=== PATIENT | female | born 1970 | race Two or more races ===

== ENCOUNTER 2017-05-28 08:30 | Emergency (ER) | payer OTHER ==
--- NOTE | 2017-05-28 09:07 | EDM.PDOC ---
ED HPI GENERAL MEDICAL PROBLEM - General Chief Complaint: Back Pain or Injury Stated Complaint: BACK INJURY Time Seen by Provider: 05/28/17 08:51 Source of Information: Reports: Patient, RN Notes Reviewed History Limitations: Reports: No Limitations - History of Present Illness INITIAL COMMENTS - FREE TEXT/NARRATIVE: The patient states that she was pulling a cart 7 days ago, on Monday, 2016 at her work at [employer], when she slipped on some cardboard, falling onto a pallet, striking her sacral area. She states that she had pain immediately, causing her to have to leave work early. She took Tylenol at home. She took the week off, but returned to work yesterday, 05/27/2017. She was given light duty, but states that she still had pain, then, when she returned today, she had even worse pain while lifting some boxes. The patient states that her pain is felt in her sacrum and up her lumbar spine, but does not radiate down either lower extremity. She denies having any tingling , numbness, or weakness. The patient denies prior back injury. She states that she has been taking only Tylenol for her pain, as she is allergic to NSAIDs and opioids. No prior medical evaluation for this complaint. The patient states that there was a visible injury when she initially injured herself, but that it has resolved. The patient does not have a PCP. Treatments CUT OFF SAWYER: Reports: Acetaminophen Middle Back Pain Score (Numeric/FACES): 8 - Related Data Allergies Allergy/AdvReac Type Severity Reaction Status Date / Time aspirin Allergy Hives Verified 05/28/17 08:36 codeine Allergy Swelling Verified 05/28/17 08:36 ibuprofen Allergy Swelling Verified 05/28/17 08:36 Home Meds: Home Meds Acetaminophen [Tylenol Extra Strength] 1,000 mg PO Q4H PRN 05/28/17 [History] Orphenadrine [Norflex] 1 tab PO Q12H #10 tab.er 05/28/17 [Rx] Past Medical History HEENT History: Reports: Impaired Vision Other HEENT History: reading glasses [employer] History: Reports: Endocrine/Metabolic History: Reports: Obesity/BMI 30+ Hematologic History: Reports: Anemia - Infectious Disease History Infectious Disease History: Reports: Chicken Pox - Past Surgical History Female Surgical History: Reports: Tubal Ligation Dermatological Surgical History: Reports: Other (See Below) (Cyst removed from posterior scalp) Social & Family History - Tobacco Use Smoking Status *Q: Never Smoker Second Hand Smoke Exposure: No - Caffeine Use Caffeine Use: Reports: Coffee, Soda - Recreational Drug Use Recreational Drug Use: No ED ROS GENERAL - Review of Systems Review Of Systems: ROS reveals no pertinent complaints other than HPI. ED EXAM,LOWER BACK PAIN/INJURY - Physical Exam Exam: See Below Exam Limited By: No Limitations General Appearance: Alert, WD/WN, No Apparent Distress Back Exam: Other (No visible abnormality to the patient's lumbar sacral area, such as swelling, erythema, ecchymosis, or abrasion. The patient reports tenderness to palpation along the lumbar spinous processes, as well as over the sacrum. No significant tenderness to the paraspinous muscles. Normal range of motion to the lower back.) Course - Vital Signs Last Recorded V/S: Last Vital Signs Temp 36.3 C 05/28/17 08:35 Pulse 96 05/28/17 08:35 Resp 18 05/28/17 08:35 BP 144/102 H 05/28/17 08:35 Pulse Ox 98 05/28/17 08:35 - Orders/Labs/Meds Orders: Active Orders 24 hr Category Date Time Status Lumbar Spine 2 or 3V [CR] Stat Exams 05/28/17 09:00 Taken Sacrum Coccyx Min 2V [CR] Stat Exams 05/28/17 09:00 Taken Meds: Medications Discontinued Medications Generic Name Dose Route Start Last Admin Trade Name Freq PRN Reason Stop Dose Admin Orphenadrine Citrate 100 mg 05/28/17 09:31 Norflex PO 05/28/17 09:32 ONETIME STA - Re-Assessments/Exams Free Text/Narrative Re-Assessment/Exam: 05/28/17 09:07 The patient's physical examination is somewhat curious, as she is reporting tenderness to palpation over all of her lumbar spinous processes. Ordinarily, one would not have tenderness to palpation of the spinous processes unless there were a fracture of a spinous process or a significant tear in the interspinous ligament, and even then, the tenderness would only be at the site of the injury, not the entire lumbar spine. Even a vertebral body compression fracture should not cause pain to palpation of the corresponding spinous process. Nevertheless, I have ordered x-rays of the lumbar and sacral spine to evaluate for an acute bony injury. If these return as negative, I will start the patient on a muscle relaxant, and refer her to an Orthopedic Surgeon for further evaluation. 05/28/17 09:30 3-view radiographs of the lumbar spine appear to be unremarkable. No acute fracture is identified. No apparent loss of disc height is noted. Formal read per the Radiologist pending. 3 view radiographs of the sacrum appear to be unremarkable. No acute fracture is identified. Formal read per the Radiologist pending. 05/28/17 09:39 X-ray results discussed with the patient. As above, no acute spinous injury was found. The patient will receive her first dose of Norflex here in the ED, and I will e-prescribe her additional. I will refer her to Dr. Mckeon for follow-up. Departure - Departure Time of Disposition: 09:40 Disposition: Home, Self-Care 01 Condition: Good Clinical Impression: Low back pain - Discharge Information Referrals: PCP,None [Primary Care Provider] - Blayne Mckeon MD [Ordering Only Provider] - Forms: ED Department Discharge Additional Instructions: You were seen in the emergency room for low back pain after slipping and falling at work on 05/21/2017. On physical examination, no visible injury was seen, however, you were tender along your lumbar and sacral spine. Workup in the ER included x-rays of your lumbar spine and sacrum, which were normal. No broken bones were seen. The cause of your low back pain is not clear, but MAY BE due to a muscle spasm. We recommend you continue taking [id number] Tylenol as needed for discomfort. You have been started on the muscle relaxant Norflex. Take one tablet every 12 hours, as prescribed. This prescription can be picked up at [facility], [address] , across from [facility], between noon and 4:00 this afternoon. Follow-up with the spinal surgeon Dr. Blayne Mckeon, in [place], at the next available appointment. If any other problems, please do not hesitate to return to the ER. - My Orders Last 24 Hours: My Active Orders 05/28/17 09:00 Lumbar Spine 2 or 3V [CR] Stat Sacrum Coccyx Min 2V [CR] Stat - Assessment/Plan Last 24 Hours: My Active Orders 05/28/17 09:00 Lumbar Spine 2 or 3V [CR] Stat Sacrum Coccyx Min 2V [CR] Stat
[2017-05-28] MEDS ORDERED: Orphenadrine 100 MG Tab.ER PO STA (09:31)
--- NOTE | 2017-05-28 17:27 | CR ---
Lumbar spine: AP, lateral and coned-down lateral views centered to the lumbosacral junction were obtained. Comparison: No previous study. Slight endplate osteophytes within L3 and L4 are noted. Vertebral body heights and disc spaces are maintained. Pedicles are intact. Visualized transverse and spinous processes are intact. No subluxation or fracture is seen. Impression: 1. Minimal endplate osteophytes. No additional abnormality is seen on three-view lumbar spine study. Diagnostic code #2
--- NOTE | 2017-05-28 17:27 | CR ---
Sacrum and coccyx: Three views of the sacrum and coccyx were obtained. No fracture or other bony abnormality is seen. Sacroiliac joints are within normal limits. Impression: 1. No abnormality is seen on three-view sacrum and coccyx study. Diagnostic code #1
== END 2017-05-28 10:00 | disposition home or self-care (01) ==
LOC: JD.ED 08:30
DX: M54.5 Low back pain (principal); Z88.6 Allergy status to analgesic agent; Z88.5 Allergy status to narcotic agent
CPT/HCPCS: 72100; 72220; 99284; A9270; 99283

== ENCOUNTER 2020-10-05 21:18 | Emergency (ER) | payer BC, OTHER ==
[2020-10-05] MEDS ORDERED: Sodium Chloride 0.9% 1,000 ML IV ONE (22:58)
--- NOTE | 2020-10-05 23:03 | EDM.PDOC ---
ED HPI GENERAL MEDICAL PROBLEM - General Chief Complaint: AUTISM TUTOR Problem Stated Complaint: CRAMPS VAGINAL BLEEDING 1 MONTH Time Seen by Provider: 10/05/20 22:42 Source of Information: Reports: Patient, Family (Daughter) History Limitations: Reports: No Limitations - History of Present Illness INITIAL COMMENTS - FREE TEXT/NARRATIVE: Mrs. Cheney is a pleasant 50-year-old woman who now presents the ED stating that she has had vaginal bleeding at a rate of several pads per day, since her last menstrual period in early August. She states that she has only spotted today, but that today was the only day that that happened. She states that she came to the ED because she started feeling tired and lightheaded this past weekend, and states that she nearly passed out. She reports that she has been experiencing occasional lower abdominal cramps, but no other symptoms, such as dysuria or fever. The patient states that she may have never had a Pap smear, but if she did, it would have been about 20 years ago. Here in the ED, the patient's initial BP is found to be mildly elevated at 161/99, otherwise, she is hemodynamically stable, afebrile, saturating 95 percent on room air. Orthostatics, obtained at triage, are negative, but very close. The patient appears to be quite comfortable, in no acute distress. Other than the vaginal bleeding, the patient denies having a recent fever, chills, sore throat, ear pain, nasal or sinus congestion, cough, dyspnea, chest pain, palpitations, nausea, vomiting, constipation, diarrhea, abdominal pain, urinary symptoms, recent weight gain or weight loss, recent bloody bowel movements or black bowel movements, recent joint aches, headaches, or rashes. The patient does not have a PCP or Automation Technologist. Lower Abdomen Pain Score (Numeric/FACES): 3 - Related Data Allergies Allergy/AdvReac Type Severity Reaction Status Date / Time aspirin Allergy Hives Verified 10/05/20 21:40 codeine Allergy Swelling Verified 10/05/20 21:40 ibuprofen Allergy Swelling Verified 10/05/20 21:40 Home Meds: Home Meds Multivitamin [One-Daily Multi-Vitamin] 1 tab PO DAILY 10/05/20 [History] Past Medical History HEENT History: Reports: Impaired Vision (wears glasses) Endocrine/Metabolic History: Reports: Obesity/BMI 30+ - Infectious Disease History Infectious Disease History: Reports: Chicken Pox - Past Surgical History HEENT Surgical History: Reports: Oral Surgery (dental extractions) Female Surgical History: Reports: Tubal Ligation Social & Family History - Tobacco Use Tobacco Use Status *Q: Never Tobacco User Second Hand Smoke Exposure: No - Caffeine Use Caffeine Use: Reports: Coffee, Soda - Alcohol Use Alcohol Use History: Yes Alcohol Use Frequency: Rarely - Recreational Drug Use Recreational Drug Use: No - Living Situation & Occupation Living situation: Reports: , with Spouse, with Family (Daughter) Occupation: Employed (Domestic violence section housekeeper) ED ROS GENERAL - Review of Systems Review Of Systems: Comprehensive ROS is negative, except as noted in HPI. ED EXAM, RENAL/ - Physical Exam Exam: See Below Exam Limited By: No Limitations General Appearance: Alert, WD/WN, No Apparent Distress Eye Exam: Bilateral Eye: EOMI, Normal Inspection Ears: Normal External Exam, Hearing Grossly Normal Nose: Normal Inspection Throat/Mouth: Normal Inspection, Normal Lips, Normal Voice, No Airway Compromise Head: Atraumatic, Normocephalic Neck: Normal Inspection, Full Range of Motion Respiratory/Chest: No Respiratory Distress, Lungs Clear, Normal Breath Sounds, No Accessory Muscle Use Cardiovascular: Normal Peripheral Pulses, Regular Rate, Rhythm, No Gallop, No JVD, No Murmur, No Rub GI/Abdominal: Normal Bowel Sounds, Soft, No Organomegaly, No Distention, No Abnormal Bruit, No Mass, Tender (Mild, suprapubically only. Nontender elsewhere.) (Female) Exam: Other (There may be a polyp or tumor in the neck of the cervix, causing the os to be somewhat open. This may be the source of bleeding. There was a small amount of older-appearing blood in the vagina, but no active bleeding.) Back Exam: Normal Inspection, Full Range of Motion, NT Extremities: Normal Inspection, Normal Range of Motion, Normal Capillary Refill Neurological: Alert, Oriented, Normal Cognition, No Motor/Sensory Deficits Psychiatric: Normal Affect Skin Exam: Warm, Dry, Intact, Normal Color, No Rash Course - Vital Signs Last Recorded V/S: Last Vital Signs Temp 36.1 C 10/05/20 21:38 Pulse 99 10/05/20 21:38 Resp 16 10/05/20 21:38 BP 161/99 H 10/05/20 21:38 Pulse Ox 95 05/17/21 21:38 Orthostatic Blood Pressure [ 141/87 Standing] Orthostatic Blood Pressure [ 151/96 Supine] - Orders/Labs/Meds Labs: Laboratory Tests 10/05/20 10/05/20 10/05/20 Range/Units 22:42 22:42 23:21 WBC 6.83 (3.98-10.04) K/mm3 RBC 4.46 (3.98-5.22) M/mm3 Hgb 14.4 (11.2-15.7) gm/dl Hct 38.5 (34.1-44.9) % MCV 86.3 (79.4-94.8) fl MCH 32.3 H (25.6-32.2) pg MCHC 37.4 H (32.2-35.5) g/dl RDW Std Deviation 40.7 (36.4-46.3) fL Plt Count 318 (182-369) K/mm3 MPV 9.0 L (9.4-12.3) fl Neutrophils % (Manual) 40 (40-60) % Band Neutrophils % 0 (0-10) % Lymphocytes % (Manual) 46 H (20-40) % Atypical Lymphs % 0 % Monocytes % (Manual) 12 H (2-10) % Eosinophils % (Manual) 2 (0.7-5.8) % Basophils % (Manual) 0 L (0.1-1.2) Platelet Estimate Adequate Anisocytosis 1+ slight RBC Morph Comment Not Reportable PT (9.7-12.0) SECONDS INR APTT (21.7-31.4) SECONDS Sodium (136-145) mEq/L Potassium (3.5-5.1) mEq/L Chloride (98-107) mEq/L Carbon Dioxide (21-32) mEq/L Anion Gap (5-15) BUN Creatinine Est Cr Clr Drug Dosing mL/min Estimated GFR (MDRD) (>60) mL/min BUN/Creatinine Ratio Glucose (70-99) mg/dL POC Glucose (70-99) mg/dL Calcium (8.5-10.1) mg/dL Magnesium (1.8-2.4) mg/dL Total Bilirubin (0.2-1.0) mg/dL AST ALT Alkaline Phosphatase Total Protein Albumin (3.4-5.0) g/dl Globulin gm/dL Albumin/Globulin Ratio (1-2) Urine Color Yellow (Yellow) Urine Appearance Clear (Clear) Urine pH 6.5 (5.0-8.0) Ur Specific [place] > or = 1.030 (1.005-1.030) Urine Protein Negative (Negative) Urine Glucose (UA) 2+ H (Negative) Urine Ketones 2+ H (Negative) Urine Occult Blood 3+ H (Negative) Urine Nitrite Negative (Negative) Urine Bilirubin Negative (Negative) Urine Urobilinogen 0.2 (0.2-1.0) Ur Leukocyte Esterase Negative (Negative) Urine RBC 40-50 H (0-5) /hpf Urine WBC 0-5 (0-5) /hpf Ur Squamous Epith Cells 5-10 H (0-5) /hpf Urine Bacteria Few (FEW) /hpf Urine Mucus Not seen (FEW) /hpf Urine HCG, Qual Negative (NEGATIVE) 10/05/20 10/05/20 10/06/20 Range/Units 23:21 23:21 02:20 WBC (3.98-10.04) K/mm3 RBC (3.98-5.22) M/mm3 Hgb (11.2-15.7) gm/dl Hct (34.1-44.9) % MCV (79.4-94.8) fl MCH (25.6-32.2) pg MCHC (32.2-35.5) g/dl RDW Std Deviation (36.4-46.3) fL Plt Count (182-369) K/mm3 MPV (9.4-12.3) fl Neutrophils % (Manual) (40-60) % Band Neutrophils % (0-10) % Lymphocytes % (Manual) (20-40) % Atypical Lymphs % % Monocytes % (Manual) (2-10) % Eosinophils % (Manual) (0.7-5.8) % Basophils % (Manual) (0.1-1.2) Platelet Estimate Anisocytosis RBC Morph Comment PT 9.8 (9.7-12.0) SECONDS INR < 0.93 APTT 25.6 (21.7-31.4) SECONDS Sodium 132 L (136-145) mEq/L Potassium 3.8 (3.5-5.1) mEq/L Chloride 97 L (98-107) mEq/L Carbon Dioxide 28 (21-32) mEq/L Anion Gap 10.8 (5-15) BUN TNP Creatinine TNP Est Cr Clr Drug Dosing 68.79 mL/min Estimated GFR (MDRD) > 60 (>60) mL/min BUN/Creatinine Ratio TNP Glucose 415 H* (70-99) mg/dL POC Glucose 358 H (70-99) mg/dL Calcium 6.4 L (8.5-10.1) mg/dL Magnesium 2.4 (1.8-2.4) mg/dL Total Bilirubin 0.8 (0.2-1.0) mg/dL AST TNP ALT TNP Alkaline Phosphatase TNP Total Protein TNP Albumin 3.0 L (3.4-5.0) g/dl Globulin 4.1 gm/dL Albumin/Globulin Ratio 0.7 L (1-2) Urine Color (Yellow) Urine Appearance (Clear) Urine pH (5.0-8.0) Ur Specific [place] (1.005-1.030) Urine Protein (Negative) Urine Glucose (UA) (Negative) Urine Ketones (Negative) Urine Occult Blood (Negative) Urine Nitrite (Negative) Urine Bilirubin (Negative) Urine Urobilinogen (0.2-1.0) Ur Leukocyte Esterase (Negative) Urine RBC (0-5) /hpf Urine WBC (0-5) /hpf Ur Squamous Epith Cells (0-5) /hpf Urine Bacteria (FEW) /hpf Urine Mucus (FEW) /hpf Urine HCG, Qual (NEGATIVE) Meds: Medications Discontinued Medications Generic Name Dose Route Start Last Admin Trade Name Freq PRN Reason Stop Dose Admin Sodium Chloride 1,000 mls @ 999 mls/hr 10/05/20 22:58 10/05/20 23:32 Normal Saline IV 10/05/20 23:58 999 mls/hr ONETIME ONE Administration Insulin Human Regular 5 unit 10/06/20 02:22 10/06/20 03:24 Insulin Regular, Human 100 Units/Ml 3 Ml Vial SUBCUT 10/06/20 02:23 Not Given ONETIME STA Insulin Human Regular Confirm 10/06/20 02:35 Insulin Regular, Human 100 Units/Ml 3 Ml Vial Administered 10/06/20 02:36 Dose 300 unit .ROUTE .STK-MED ONE - Re-Assessments/Exams Free Text/Narrative Re-Assessment/Exam: 10/05/20 23:00 As above, the patient has been experiencing vaginal bleeding, ordinarily about 3 pads per day, since her LMP in early August. This past weekend she started feeling lightheaded. She reports having only spotting today, for the first time. Orthostatics at triage are not quite positive, but very close. Her physical exam is remarkable for mild discomfort to palpation suprapubically, but is otherwise unremarkable. I have ordered a work-up that includes several blood tests, urinalysis, and urine test. In the meantime, the patient will be given 1 L of IV fluid. The patient will be taken over to the gyne exam room for a pelvic exam. 10/05/20 23:10 On pelvic examination, the patient appears to have an abnormality of her cervix. There may be a polyp or tumor in the neck of the cervix, causing the os to be somewhat open. This may be the source of bleeding. There was a small amount of older-appearing blood in the vagina, but no active bleeding. 10/06/20 00:03 Notified by a botany laboratory assistant that the patient's blood sample is very lipemic, which will adversely affect the chemistry panel results. Her CBC is unremarkable. Her urinalysis is remarkable for 3+ occult blood with 40-50 RBCs, leukocyte esterase negative with 0-5 WBCs, nitrate negative with few bacteria, and 5-10 squamous epithelial cells. Her urine test is negative. 10/06/20 00:24 Notified by the botany laboratory assistant that the patient's coags will also be affected by the patient's lipemic blood. In accordance with her guidelines, she will redraw in 2 hours. 10/06/20 02:09 CMP, obtained at 2342, is noted to be grossly lipemic, with likely incorrect results, is remarkable for slight hyponatremia of 133, bicarbonate low at 14.8, and hyperglycemia of either 388 or 425. Her magnesium level is reported slightly depressed at 1.7. A note from lab indicates that the CMP was redrawn at 01:26. Based on the above, I will order a fingerstick Accu-Chek, and if elevated, insulin. 10/06/20 02:22 The patient's Accu-Chek is 358. I have therefore ordered 5 units of regular insulin SQ. 10/06/20 03:07 The repeat CMP from 01:26 yields very similar results, with slight hyponatremia of 132, and hyperglycemia of 415. Notified by lab that the coags are not able to be tested with this degree of lipemia. 10/06/20 03:20 Notified by Audrey ESCOBAR that the patient refused the insulin that was ordered earlier. I went and talked to the patient and her daughter. The patient initially stated that she did not believe that she had diabetes, stating that if she had diabetes, she felt like she would have more symptoms, and also stating that that her blood glucose is likely high because of drinking more Gatorade than water recently. I explained that there is no question that she has diabetes. Nevertheless, she does not want to take the insulin. She stated that she believes that there are likely non-medicines to treat diabetes. The patient stated that her insurance is through [employer], therefore I will have her call the [facility] first thing in the morning to arrange to meet with a PCP, as well as with a Automation Technologist. I impressed upon her the need to get this done quickly. I will also have her learn about a low glycemic index diet on the [place] [employer] website. Departure - Departure Time of Disposition: 03:23 Disposition: Home, Self-Care 01 Condition: Good Clinical Impression: Newly diagnosed diabetes, Serum lipids high, Abnormal uterine bleeding - Discharge Information *PRESCRIPTION DRUG MONITORING PROGRAM REVIEWED*: Not Applicable *COPY OF PRESCRIPTION DRUG MONITORING REPORT IN PATIENT SUN: Not Applicable Instructions: Abnormal Uterine Bleeding, [id number] Referrals: PCP,None [Primary Care Provider] - Forms: ED Department Discharge Additional Instructions: You were seen in the emergency room after experiencing 1 month of vaginal bleeding with occasional lower abdominal cramps, and recent lightheadedness. Work-up in the ER included positional blood pressure checks, several blood tests, a urinalysis, and a urine test. Your blood was found to have very high lipids, which disallowed the results of several of your blood tests, however, your blood sugar was found to be over 400, which is very high. Treatment with insulin was recommended, but declined. On examination, your cervix appears to be abnormal. Further evaluation is necessary. We recommend that you contact the [facility] first thing in the morning to arrange to be seen by BOTH a primary care provider AND a Automation Technologist. The primary care provider needs to address the high lipid levels in your blood and your high blood sugar levels. The Automation Technologist needs to address your abnormal uterine bleeding and abnormal-appearing cervix. In the meantime, we recommend that you learn about a low glycemic index diet, by going to the [place] [employer] website, and clicking on the section on nutrition. If any other problems, please do not hesitate to return to the ER. Sepsis Event Note (ED) - Evaluation Sepsis Screening Result: No Definite Risk - Focused Exam Vital Signs: Vital Signs Temp Pulse Resp BP Pulse Ox 10/05/20 21:38 36.1 C 99 16 161/99 H 95
[2020-10-06] MEDS ORDERED: Insulin Regular, Human 100 Units/ML 3 ML Vial SUBCUT STA (02:22)
[2020-10-06] MEDS ORDERED: Insulin Regular, Human 100 Units/ML 3 ML Vial ONE (02:35)
== END 2020-10-06 03:37 | disposition home or self-care (01) ==
LOC: JD.ED 21:18
DX: N93.9 Abnormal uterine and vaginal bleeding, unspecified (principal); E11.65 Type 2 diabetes mellitus with hyperglycemia; E78.00 Pure hypercholesterolemia, unspecified; Z88.5 Allergy status to narcotic agent; Z88.8 Allergy status to other drugs, medicaments and biological substances; E66.9 Obesity, unspecified; Z68.41 Body mass index [BMI] 40.0-44.9, adult
CPT/HCPCS: 36415; 80053; 81001; 81025; 82947; 83735; 85007; 85027; 85610; 85730; 99284; J7030

== ENCOUNTER 2021-09-21 12:54 | Emergency (ER) | payer BC | END 2021-09-21 15:13 | disposition home or self-care (01) | LOC: JD.ED 12:54 | DX: S09.90XA Unspecified injury of head, initial encounter (principal); E11.9 Type 2 diabetes mellitus without complications; E66.9 Obesity, unspecified; Z68.41 Body mass index [BMI] 40.0-44.9, adult; Z79.84 Long term (current) use of oral hypoglycemic drugs; Z88.6 Allergy status to analgesic agent; Z88.5 Allergy status to narcotic agent; W10.8XXA Fall (on) (from) other stairs and steps, initial encounter | CPT/HCPCS: 70450; 70450-26; 72125; 72125-26; 99283-25 ==